=== PATIENT | male | born 1990 | race Caucasian/White ===

== ENCOUNTER 2024-03-16 07:19 | Emergency (ER) | payer MEDICAID ==
[~2024-03-16] VITALS: Ht 165.1 cm; Wt 81.6 kg
[2024-03-16 07:23] VITALS: BP 109/72; PULSE 83; RESP 17; TEMP 97.3; O2SAT 97
[2024-03-16 08:24] LABS: APPEARANCE,URINE CLEAR (CLEAR); BILIRUBIN,URINE NEGATIVE (NEGATIVE); BLOOD, URINE NEGATIVE (NEGATIVE); COLOR,URINE YELLOW (YELLOW); LEUKOCYTE ESTERASE ,URINE NEGATIVE (NEGATIVE); NITRITE, URINE NEGATIVE (NEGATIVE); PROTEIN,URINE NEGATIVE (NEGATIVE); UGLUCOSE 2+ (NEGATIVE); UROBILINOGEN,URINE 0.2 EU/dL (0.2 - 1)
[2024-03-16] MEDS: LIDOCAINE 5% 1 EA PATCH TP ONE (08:36)
[2024-03-16] MEDS: KETOROLAC 30 MG/ML VIAL IM ONE (08:37)
[2024-03-16 08:44] LABS: BACTERIA,URINE 0-2 /HPF (None Seen); SQUAMOUS EPITHELIAL CELL,UR 0-3 (FEW) /LPF (0-3 (FEW)); WBC,URINE 0-5 /HPF (0-5); YEAST,URINE Rare /HPF (None Seen)
[2024-03-16] MEDS ORDERED: CIPR500T4 PO (09:06)
[2024-03-16] MEDS ORDERED: IBUP-2213 PO (09:06)
[2024-03-16 09:14] VITALS: BP 116/76; PULSE 71; RESP 18; TEMP 97.3; O2SAT 97
[2024-03-16] MEDS ORDERED: LID5T TP (09:24)
== END 2024-03-16 09:13 | disposition home or self-care (01) ==
LOC: MED 07:19
DX: R07.89 Other chest pain (principal); N39.0 Urinary tract infection, site not specified; F41.9 Anxiety disorder, unspecified; E11.9 Type 2 diabetes mellitus without complications; Z79.1 Long term (current) use of non-steroidal anti-inflammatories (NSAID); Z79.2 Long term (current) use of antibiotics; Z91.013 Allergy to seafood
CPT/HCPCS: 81001; 82948; 96372; 99283; J1885